=== PATIENT | female | born 1975 | race Caucasian/White ===

== ENCOUNTER → 2017-05-22 17:02 | Outpatient (CLI) | payer BC ==
[2016-01-26 06:09] VITALS: BMI 43.1
[~2017-05-22 17:02] MED LIST: CALTRATE 600 M600 M1 PO; HYDROCODONE-APA1 TAB PO; PROBIOTIC1 EAC1 PO; PROVERA10 MG PO; SYNTHROID50 MCG PO; VITAMIN B COMPL1 TAB PO
== END | disposition home or self-care (01) ==
LOC: D.MAMMO 16:00
DX: Z12.31 Encounter for screening mammogram for malignant neoplasm of breast (principal)